=== PATIENT | female | born 1965 | race Caucasian/White ===

== ENCOUNTER 2021-04-23 07:16 | Outpatient (CLI) | payer BC, SELFPAY ==
--- NOTE | ~2021-04-23 | XR_ITS ---
XR cervical spine min 6V 04/23/2021 07:40 Indication: Radiculopathy Procedure: 6 views of the cervical spine Comparison: No prior studies for comparison. Findings: There is mild degenerative disc disease at C6-7. Straightening of cervical lordosis. There is mild multilevel uncinate hypertrophy. Lung apices are normal. Odontoid process within normal limit s. No significant alteration of alignment with flexion and extension. No prevertebral soft tissue abn ormality. Impression: 1: Mild cervical spondylosis. Reviewed, dictated and finalized at location A. Impression: 1: Mild cervical spondylosis.
== END 2021-04-23 07:17 | disposition home or self-care (01) ==
LOC: ANHIMG 07:20
PROVIDERS: PCP Family Medicine; Visit Provider Family Medicine
DX: M47.22 Other spondylosis with radiculopathy, cervical region (principal)
CPT/HCPCS: 72052

== ENCOUNTER 2022-07-08 01:16 | Day surgery (SDC) | payer BC, SELFPAY ==
[2022-06-20 14:55] VITALS: BMI 26.6
[2022-07-08 09:45] VITALS: BP 122/83; PULSE 108; RESP 16; TEMP 36.5; O2SAT 98; BMI 26.8
[2022-07-08] MEDS: LACTATED RINGERS 1,000 ML 150 ML IV CONT (09:57)
--- NOTE | 2022-07-08 09:57 | P.PNAN_ITS ---
Anes - Initial Pre Proc Eval Procedure: Operation Date: 07/08/22 11:00 Proposed Procedures p Screening Colonoscopy - Macho Rosa MD Date/Time: 07/08/22 09:57 Surgeon: Macho Rosa MD Pre Op Diagnosis: Hx of colon polyps Patient Data Age: 56 Gender: F Height: 1.68 m Weight: 75.4 kg Last Vital Signs Temp 36.5 C 07/08/22 09:45 Pulse 108 H 07/08/22 09:45 Resp 16 07/08/22 09:45 BP 122/83 07/08/22 09:45 Pulse Ox 98 07/08/22 09:45 O2 Del Method Room Air 07/08/22 09:45 Allergies Allergy/AdvReac Type Severity Reaction Status Date / Time No Known Allergies Allergy Verified 07/08/22 09:44 Home Medications Medication Instructions Recorded Confirmed Type No Home Medications 07/08/22 07/08/22 History Patient hx anesthesia problems: none Family hx anesthesia problems: none Results Review: All pre-operative results and documents have been reviewed as part of the pre- operative evaluation. [facility]LY [facility] Surgical History Surgical History (Updated 07/08/22 @ 09:57 by Cortes Iglesias MD) H/O colonoscopy Family History Family History Sibling Family history of malignant neoplasm Father Malignant neoplasm of prostate Social History Social History Smoking status: Never smoker Alcohol intake: never Substance use: never Substance use type: does not use Living arrangements: with family Spiritual care concerns: No Anes - Eval Final PreProcedure Day of Procedure 07/08/22 09:57 Patient weight: normal Heart: regular rate and rhythm Lungs: clear to auscultation Airway: Mallampati scale class II Neurological: alert and oriented Last oral intake: >/= 8 hours ASA classification: I Emergent: no Anesthetic plan: proceed Anesthesia type and monitoring: general GIVS and standard monitoring Results Review: All pre-operative results and documents have been reviewed as part of the pre- operative evaluation. Informed Consent: The patient's anesthetic plan and its attendant risks and benefits were discussed with the patient/family/POA. Questions were solicited and answers provided to the satisfaction of the patient/family/POA.
--- NOTE | 2022-07-08 10:23 | P.HP_ITS ---
History of Present Illness History of Present Illness Consent: Risks, benefits, and alternatives have been discussed and questions answered. Patient agrees to proceed with procedure. Chief complaint: Hx of colon polyps Narrative: Natasha Saavedra is a 56 year old female Presents for screening colonoscopy. Patient does have a prior history of colon polyps. Family history is significant her sister has had colon polyps. Patient presents today for neoplasia screening colonoscopy. Her weight appetite and bowel movements are normal. Review of Systems Review of Systems: Review of systems noncontributory. FOR[facility]LY [facility] Surgical History Surgical History (Updated 07/08/22 @ 09:57 by Cortes Iglesias MD) H/O colonoscopy Family History Family History Sibling Family history of malignant neoplasm Father Malignant neoplasm of prostate Social History Social History Smoking status: Never smoker Alcohol intake: never Substance use: never Substance use type: does not use Living arrangements: with family Spiritual care concerns: No Meds Home Medications and Allergies Home Medications Medication Instructions Recorded Confirmed Type No Home Medications 07/08/22 07/08/22 History Allergies Allergy/AdvReac Type Severity Reaction Status Date / Time No Known Allergies Allergy Verified 07/08/22 09:44 Vital Signs Vital Signs - 24 hr 07/08/22 09:45 Temperature 97.7 F Pulse Rate 108 H Respiratory Rate 16 Blood Pressure 122/83 Pulse Oximetry 98 Oxygen Delivery Room Air Exam Narrative: Physical exam reveals patient to be alert. Vital signs stable. HEENT exam is unremarkable. Patient is anicteric. Lungs are clear to auscultation and percussion. Heart is without murmur or extra sounds. Abdomen bowel sounds present soft nontender with organomegaly. Digital external rectal exam is normal. Assessment and Plan Assessment and plan (1) History of colon polyps: Code(s): Z86.010 - Personal history of colonic polyps Status: Acute Assessment and Plan: Patient gives a prior history of colon polyps. Family history is significant that her sister has had colon polyps. Plan for screening colonoscopy now consider follow-up at 5 year intervals in the future.
[2022-07-08 11:24] VITALS: BP 96/64; PULSE 78; RESP 18; O2SAT 98
[2022-07-08 11:34] VITALS: BP 115/76; PULSE 65; RESP 22; O2SAT 100
[2022-07-08 11:44] VITALS: BP 116/62; PULSE 83; RESP 18; O2SAT 100
== END 2022-07-08 11:51 | disposition home or self-care (01) ==
PROVIDERS: Visit Provider Internal Medicine Gastroenterology
PROC: 0DJD8ZZ Inspection of Lower Intestinal Tract, Via Natural or Artificial Opening Endoscopic (ICD-10-PCS; CPT 45378; principal; 2022-07-08 11:00)
DX: Z12.11 Encounter for screening for malignant neoplasm of colon (principal); K64.8 Other hemorrhoids; Z86.010 Personal history of colon polyps; Z83.71 Family history of colonic polyps
CPT/HCPCS: 45378; J2704; J7120

== ENCOUNTER 2024-04-21 15:05 | Outpatient (CLI) | payer BC, SELFPAY ==
--- NOTE | ~2024-04-21 | MM_ITS ---
EXAMINATION: MM screening [facility] BI w lionel HISTORY: Screening mammogram TECHNIQUE: Craniocaudal and mediolateral oblique 3-D tomosynthesis images were obtained and synthetic 2-D images were generated. CAD analysis was submitted and interpreted. COMPARISON: 10/14/2013, 09/04/2012, 08/28/2012 BREAST PARENCHYMAL COMPOSITION:Dense: The breasts are heterogeneously dense, which may obscure small masses. FINDINGS: No suspicious mass, calcification, or architectural distortion are identified in either maik ast to suggest malignancy. There has been no suspicious interval change. IMPRESSION: No mammographic evidence of malignancy. Recommend routine screening mammography in one year. BI-RADS Category 1: Negative Reviewed, dictated and finalized at location .
--- NOTE | ~2024-04-21 | DEXA_ITS ---
Bone Density Report Name: BENNETT DOSS Age: 58 Sex: Female Ethnicity: White Date of : 1965 Indication: postmenopausal; screening for osteoporosis; Referring Provider: CAROLINA, ADOLPH Bliss Study: Bone densitometry was performed. Exam Date: April 21, 2024 Accession number: [id number] Bone Density: Region BMD T-score Z-score Classification AP Spine(L1-L4) 1.086 0.4 1.8 Normal Femoral Neck (Left) 0.816 -0.3 1.0 Normal Total Hip (Left) 1.105 1.3 2.3 Normal Femoral Neck (Right) 0.767 -0.7 0.6 Normal Total Hip (Right) 1.059 1.0 1.9 Normal Total Hip Mean 1.082 1.2 2.1 Normal World Health Organization criteria for BMD impression classify patients as: Normal (T-score at or above -1.0), Osteopenia (T-score between -1.0 and -2.5), or Osteoporosis (T-score at or below -2.5). Clinical Information Provided by Patient: Has used the following medications: Vitamin D, Calcium Patient maximum height was 5.6 Menopause Age: 53 Does not regularly consume dairy products Drinks caffeinated beverages Onset of menses at age 12 Number of children 2 Impression: The patient has normal bone mass. Discussion: BONE DENSITY IS ABOVE THE MINIMUM DESIRABLE LEVEL AT ALL SKELETAL SITES TESTED. This patient?s bone mineral density is above the minimum desirable level (T-score -1.0 or better) at all sites measured. The patient should follow a healthful lifestyle (good nutrition with adequate calcium and vitamin D, and appropriate weight-bearing exercise). Follow-Up: Consider repeating this study in 5 years or sooner if there is some new clinical indication. Reported by: FAM on 04/21/2024 3:47:00 PM. Reviewed, dictated and finalized at location [facility]
== END 2024-04-21 15:06 | disposition home or self-care (01) ==
LOC: ANHIMG 15:07
PROVIDERS: PCP Physician Assistant; Visit Provider Physician Assistant
DX: Z12.31 Encounter for screening mammogram for malignant neoplasm of breast (principal); Z78.0 Asymptomatic menopausal state
CPT/HCPCS: 77063; 77067; 77080